=== PATIENT | male | born 2000 | race Two or more races ===

== ENCOUNTER 2020-09-05 03:55 | Emergency (ER) | payer OTHER ==
[~2020-09-05] VITALS: Ht 175.3 cm; Wt 54.4 kg
== END 2020-09-05 04:50 | disposition home or self-care (01) ==
LOC: ER 03:55
DX: R11.2 Nausea with vomiting, unspecified (principal); F10.129 Alcohol abuse with intoxication, unspecified; F12.10 Cannabis abuse, uncomplicated